=== PATIENT | female | born 2000 | race Caucasian/White ===

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

== ENCOUNTER 2021-12-22 16:52 | Emergency (ER) | payer OTHER ==
[~2021-12-22] VITALS: Wt 77.1 kg
[2021-12-22 17:16] VITALS: BP 132/66
== END 2021-12-22 20:25 | disposition home or self-care (01) ==
LOC: ED 16:52
DX: S66.811A Strain of other specified muscles, fascia and tendons at wrist and hand level, right hand, initial encounter (principal); Z88.1 Allergy status to other antibiotic agents; Z88.8 Allergy status to other drugs, medicaments and biological substances; W18.30XA Fall on same level, unspecified, initial encounter; Y93.89 Activity, other specified; Y92.89 Other specified places as the place of occurrence of the external cause; Y99.9 Unspecified external cause status